=== PATIENT | male | born 1960 | race Two or more races ===

== ENCOUNTER 2024-08-05 10:55 | Outpatient (RCR) | payer OTHER, SELFPAY ==
--- NOTE | 2024-07-20 15:09 | CTCCONSULT_ITS ---
[facility] [address] [place], [place] [address] Consultation Note Date: 07/20/2024 MR#: [id number] Name: LUIS EDUARDO MONTEMAYOR : 1960 Dx: C79.31 Secondary malignant neoplasm of brain Referring physician. Mendez Bruno MD/[facility] Reason for consultation. Patient with metastatic CA to the brain referred for palliative radiation therapy. History of Present Illness: Patient is a 64-year-old gentleman was recently admitted to [facility] recently in April 2024 , with shortness of breath with left pleural effusion multiple pulmonary nodules and pericardial effusion noted. Patient had pericardial window placement and chest tube placement . Also had biopsy of one of the lung lesions April 12, 2024 which revealed metastatic carcinoma consistent with renal cell. MRI of the brain June 09, 2024 revealed 2 enhancing lesions in the left parietal lobe 1 with surrounding mass effect and edema. This was suspicious for met disease. There was also mild white matter disease without enhancement suggestive of chronic small vessel ischemic changes and chronic sinusitis. Patient has recently started systemic cancer treatments under Dr. Bear's direction. Past Medical History: High blood pressure HIV prostatism glaucoma diabetes Meds. Atorvastatin oxycodone 5 mg every 6 as needed glimepiride metformin pantoprazole Tradjenta vitamin D Anusol HC Allergies none to meds Social History: Patient used to work in a grocery store now retired and lives with family in [place]. Denies smoking drinking Review of Systems: Has had cold intolerance muscle pain painful urination back pain shortness of breath anxiety Physical Exam: General: Adequate nourished appearing gentleman in no acute distress HEENT: Atraumatic normocephalic extraocular muscle intact no oral lesion no cervical or supraclavicular adenopathy CV: Chest good auscultation heart regular rate and rhythm ABD: Soft no organomegaly or tenderness EXT: No signs clubbing or edema. Assessment:1. 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 Currently receiving systemic chemo under Dr. Bear's direction in [facility] 3. Recently discovered brain met left parietal lobe region noted on MRI. 4. Will review the MRI and we will schedule patient next week for 10 fractions of radiation therapy using 3D technique. 5. [facility] the course of treatment. Side effects explained. 6. Thank you very much for allowing me to evaluate and manage this patient. Cc: Devendra Bear MD [facility] [place] Plan: Electronically signed by: Jamison Steven MD, DABR 07/20/2024 3:07 PM
--- NOTE | 2024-07-20 15:10 | CTCTXPLN_ITS ---
[facility] [address] [place], [place] [address] Physician Clinical Treatment Planning Note Date of Service: 07/20/2024 Name: LUIS EDUARDO YEKINZA Lin.: 1960 The patient has agreed to proceed with Radiation therapy. Tests and supporting medical records were interpreted to assist in defining the tumor location and extent of disease. Further imaging will be necessary to contour and delineate the volume to which the XRT will be provided. A. Treatment Intent: Palliative B. Modality: 6 MV C. Requested Technique: 3D D. Treatment Site: Left parietal region E. Critical structures to be contoured on plan: F. In order to accomplish this plan, I am ordering/Prescribing the followin. Simulations (s) will be performed to accomplish a reproducible treatment position, to determine optimal treatment portals/beam arrangements, to design beam modifying devices and verify treatment portals on patient prior to the commencement of Radiation Therapy. Brain 2. Devices; for immobilization and beam shaping: Aquaplast 3. CT Guidance for placement of XRT montano Scan area: 4. Portal images Frequency: 5. Invivo transit dose measurement once per week on all VMAT patients. 6. Special Physics Consult Requested for: 7. Other requests: Special procedures someone getting chemo and radiation G. Dose Objectives: Palliative Electronically signed by: Jamison Steven M.D. 07/20/2024 3:08 PM
--- NOTE | 2024-07-20 15:12 | CTCTXPLNST_ITS ---
Radiation Oncology Treatment Planning Sheet Name: LUSI EDUARDO MONTEMAYOR MR#: [id number] : 1960 Dx: C79.31 Secondary malignant neoplasm of brain Date of Service: 07/20/2024 Account #: ?? Pt Treatment Intent: curative palliative other: Stage: Procedure CPT # Ordered Spec. Procedure 99309 Chemoradiation 1 Fletcher Complex (set-up) 25661 Brain 1 Fletcher Simple 66136 1 IMRT Plan 05197 MLC Devices VMAT 81490 Fletcher 3 D 77380 1 TRTMT dev Complex 37968 Aqua Plast 2 montano 3 TRTMT dev simple 97237 Basic David 20262 2 Special Dosimetry 30867 Spec Physics 04250 Port Films 52424 2 SRS Cranial/1FX 00419 SBR 5 FX or Less /ex: 5 = 5 fx 25472 IMRT Simple 58787 IMRT Complex 32756 IGRT 07946 Rad del com 6-10 29774 3000 10 Rad del com 11- 10571 Cont Med Physics 25235 2 Treatment Planning 30706 1 Rad del com 20 mev 74065 Rad del inter 6-10 81345 Rad del inter 11 40432 Rad del simple 6-10 38142 Rad del simple 11-19 55281 Special Port Plan 60783 TRTMT dev inter 56926 Isodose Complex 75366 Isodose simple 76905 Resp Motion Mgmt Simulation 27216 Placement of Fiducial Markers 02172 Electronically Signed By: Jamison Steven MD, DABR 07/20/2024 3:10 PM
--- NOTE | 2024-07-29 10:03 | CTCSNOTE_ITS ---
[facility] [address] [place], [place] [address] CT Simulation Note Date: 07/29/2024 MR# [id number] Name: LUIS EDUARDO MONTEMAYOR : 1960 (A) DIAGNOSIS: C79.31 Secondary malignant neoplasm of brain (B) Patient was placed in supine position and used aquaplast for immobilization purposes. (C) CT slices included brain (D) 3 D Will be needed for maximum sparing of adjacent normal critical structures. (E) Patient tolerated the simulation well and left the room in good condition. Electronically signed by: Jamison Steven MD, NUVIA 07/29/2024 10:00 AM
== END 2024-08-06 23:59 | disposition home or self-care (01) ==
LOC: SCTC 10:55
PROVIDERS: PCP Student in an Organized Health Care Education/Training Program; Referring Provider Student in an Organized Health Care Education/Training Program; Visit Provider Radiology Therapeutic Radiology
DX: Z51.0 Encounter for antineoplastic radiation therapy (principal); C64.9 Malignant neoplasm of unspecified kidney, except renal pelvis; C79.31 Secondary malignant neoplasm of brain; C78.00 Secondary malignant neoplasm of unspecified lung
CPT/HCPCS: 77014; 77280; 77290; 77295; 77300; 77334; 77412; 77470; 99213; G0463

== ENCOUNTER 2024-08-30 13:11 | Outpatient (RCR) | payer OTHER, SELFPAY ==
--- NOTE | 2024-08-08 14:39 | CTCTRTNOTE_ITS ---
[facility] [address] [place], [place] [address] Weekly Management Date: 08/08/2024 ?? Name: LUIS EDUARDO Lin.: 1960 A. Patient is currently at 1200 cGy. B. Patient is tolerating treatment well. C. Resume radiation therapy. Electronically signed by: Jamison Steven M.D. 08/08/2024 2:37 PM
== END 2024-09-05 23:59 | disposition home or self-care (01) ==
LOC: SCTC 13:11
PROVIDERS: PCP Student in an Organized Health Care Education/Training Program; Referring Provider Student in an Organized Health Care Education/Training Program; Visit Provider Radiology Therapeutic Radiology
DX: Z51.0 Encounter for antineoplastic radiation therapy (principal); C79.31 Secondary malignant neoplasm of brain; C64.2 Malignant neoplasm of left kidney, except renal pelvis; C78.00 Secondary malignant neoplasm of unspecified lung
CPT/HCPCS: 77336; 77412; 77417; 99212; G0463

== ENCOUNTER 2024-11-01 10:49 | Outpatient (RCR) | payer OTHER, SELFPAY ==
--- NOTE | 2024-11-01 11:47 | CTCFLWUP_ITS ---
[facility] [address] [place], [place] [address] FOLLOW-UP NOTE Date: 11/01/2024 MR#: [id number] Name: LUIS EDUARDO MONTEMAYOR : 1960 Dx: C79.31 Secondary malignant neoplasm of brain Identification. Patient with metastatic CA to the brain thought to be from renal primary. Completed XRT to the left parietal brain 3000 cGy in 10 fractions on 08/16/2024. As I see patient today patient appears to be in pain related to his sinus problems. He is unhappy that he gets pain pills just once a month. There is no neurological signs of focal weakness. Told patient to see his primary in [place] for pain symptoms. I will order MRI of the brain and see him as needed. Labs were to be taken prior to MRI of the brain with contrast. Electronically signed by: Jamison Steven M.D. 11/01/2024 11:45 AM
== END 2024-11-06 23:59 | disposition home or self-care (01) ==
LOC: SCTC 10:49
PROVIDERS: PCP Student in an Organized Health Care Education/Training Program; Referring Provider Student in an Organized Health Care Education/Training Program; Visit Provider Radiology Therapeutic Radiology
DX: C79.31 Secondary malignant neoplasm of brain (principal); R52 Pain, unspecified; Z92.3 Personal history of irradiation
CPT/HCPCS: 99213; G0463

== ENCOUNTER 2024-12-15 08:19 | Outpatient (RCR) | payer OTHER, SELFPAY ==
--- NOTE | 2024-12-15 09:11 | CTCFLWUP_ITS ---
[facility] [address] [place], [place] [address] FOLLOW-UP NOTE Date: 12/15/2024 MR#: [id number] Name: LUIS EDUARDO MONTEMAYOR : 1960 Dx: C79.31 Secondary malignant neoplasm of brain Identification. Patient with metastatic CA to the brain thought to be from renal primary. Completed 3000 cGy in 10 fractions 08/16/2024. Had MRI of the brain 11/14/2024 and there were new left temporal presumed metastatic lesion without significant mass effect with interval resolution of to previously small enhancing lesion left parietal region. Abnormal cervical vertebra recommended new plain films. 1 2 appearance Patient reportedly will have a PET scan to be performed at the end of this month. Told patient if the PET scan looks reasonably favorable, we can do either 3D VMAT or SBRT radiation to the new lesion in the brain after reviewing the MRI of brain already performed. 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 #2 Good response. to treatment to parietal lesions #3. New area of involvement left temporal area. #4. If PET scan shows cancer under reasonable control additional radiation therapy to the new spot in the brain will be considered. Will get MRI CD sent over here Cc: Devendra Bear MD [facility] Electronically signed by: Jamison Steven M.D. 12/15/2024 9:09 AM
== END 2025-01-06 23:59 | disposition home or self-care (01) ==
LOC: SCTC 08:19
PROVIDERS: PCP Internal Medicine Cardiovascular Disease; Referring Provider Internal Medicine Cardiovascular Disease; Visit Provider Radiology Therapeutic Radiology
DX: C79.31 Secondary malignant neoplasm of brain (principal); Z92.3 Personal history of irradiation
CPT/HCPCS: 99213; G0463